=== PATIENT | male | born 1955 | race Hispanic/Latino ===

== ENCOUNTER 2019-06-20 14:31 | Observation (INO) | payer OTHER, MEDICARE ==
[~2019-06-20] VITALS: Ht 162.6 cm; Wt 113.8 kg
[2019-06-20] MEDS ORDERED: ASPIRIN 325 MG TABLET ONE (14:54)
[2019-06-20] MEDS ORDERED: NITROGLYCERIN 1GM/1 INCH PACKET TD ONE (14:54)
[2019-06-20 15:02] LABS: BASOPHILS % (AUTO) 0.2 % (0.0-5.0); EOSINOPHILS % (AUTO) 0.1 % (0.0-8.0); LYMPHOCYTES % (AUTO) 8.3 % (21.0-51.0); MEAN CORPUSCULAR HEMOGLOBIN 30.9 pg (27.0-33.0); MEAN CORPUSCULAR HGB CONC 34.5 g/dL (32.0-36.0); MEAN CORPUSCULAR VOLUME 89.7 fL (79-99); MONOCYTES % (AUTO) 5.9 % (3.0-13.0); NEUTROPHILS % (AUTO) 85.5 % (40.0-77.0); PLATELET COUNT (AUTO) 218 K/uL (130-400); RED BLOOD CELL COUNT(AUTO) 4.69 MIL/uL (4.50-6.20); RED CELL DISTRIBUTION WIDTH 14.3 % (11.0-15.5); WHITE BLOOD COUNT (AUTO) 13.2 K/uL (4.8-10.8)
[2019-06-20 15:16] LABS: POTASSIUM 3.8 mmol/L (3.5-5.1)
[2019-06-20 15:21] LABS: ALBUMIN 3.9 g/dL (3.5-5.0); BILIRUBIN,TOTAL 1.1 mg/dL (0.2-1.0); TOTAL PROTEIN, SERUM 8.3 g/dL (6.0-8.3)
[2019-06-20 15:26] LABS: INR 0.97 (0.85-1.15); PARTIAL THROMBOPLASTIN TIME 26.8 SEC (26.3-35.5); PROTHROMBIN TIME 10.2 SEC (9.6-11.6)
[2019-06-20] MEDS ORDERED: METOPROLOL TARTRATE 1 MG/ML 5ML VIAL IV ONE (16:12)
[2019-06-20] MEDS ORDERED: ENOXAPARIN SODIUM 40 MG/0.4 ML SYRINGE SQ ONE (16:47)
[2019-06-20] MEDS ORDERED: LACTATED RINGERS 1000ML 1,000 ML IV ONE (16:47)
[2019-06-20] MEDS ORDERED: LABETALOL 20 MG/4 ML DISP.SYRIN IV PRN (17:30)
[2019-06-20] MEDS: LACTATED RINGERS 1000ML 1,000 ML IV SCH (17:30)
[2019-06-20] MEDS ORDERED: ONDANSETRON HCL 4 MG/2 ML VIAL IVP PRN (17:30)
[2019-06-20] MEDS ORDERED: ACETAMINOPHEN 325 MG TAB PO PRN (17:30)
[2019-06-20] MEDS ORDERED: MORPHINE SULFATE 2 MG/ML 1ML SYG IVP PRN (17:30)
[2019-06-20] MEDS ORDERED: HYDROCODONE/ACETAMINOPHEN 5/325 MG TAB PO PRN (17:30)
[2019-06-20 18:25] VITALS: BP 122/74
[2019-06-20] MEDS ORDERED: HYDR25TA PO (18:46)
[2019-06-20] MEDS ORDERED: ROPI0.257 PO (18:46)
[2019-06-20] MEDS ORDERED: ATOR40TA69 PO (18:46)
[2019-06-20] MEDS ORDERED: LISI-613 PO (18:46)
[2019-06-20] MEDS ORDERED: OMEP40CA13 PO (18:46)
[2019-06-20 19:53] VITALS: BP 101/61
[2019-06-20] MEDS: METOPROLOL TARTRATE 25 MG TAB PO SCH (20:25)
[2019-06-20] MEDS: INSULIN R PO SS1/2 SQ SCH (20:26)
--- NOTE | 2019-06-20 20:52 | NUR ---
MD Dr MONDRAGON came to see pt.
[2019-06-20] MEDS ORDERED: ATORVASTATIN CALCIUM 40 MG TABLET PO SCH (21:00)
[2019-06-20 21:44] LABS: CREATINE KINASE, TOTAL 208 U/L (21-232); MYOGLOBIN 131 ng/mL (10-92); TROPONIN I < 0.04 ng/mL (0.00-0.06)
--- NOTE | 2019-06-21 01:01 | NUR ---
NPO Pt instructed re Npo status for lexiscan in am.
[2019-06-21 02:50] LABS: BASOPHILS % (AUTO) 2.4 % (0.0-5.0); EOSINOPHILS % (AUTO) 2.3 % (0.0-8.0); HEMATOCRIT 36.8 % (42-54); LYMPHOCYTES % (AUTO) 26.2 % (21.0-51.0); MEAN CORPUSCULAR HEMOGLOBIN 31.2 pg (27.0-33.0); MEAN CORPUSCULAR HGB CONC 34.5 g/dL (32.0-36.0); MEAN CORPUSCULAR VOLUME 90.3 fL (79-99); MONOCYTES % (AUTO) 9.7 % (3.0-13.0); NEUTROPHILS % (AUTO) 59.4 % (40.0-77.0); NUCLEATED RED BLOOD CELLS 0.1 % (0.0-0.19); PLATELET COUNT (AUTO) 183 K/uL (130-400); RED BLOOD CELL COUNT(AUTO) 4.08 MIL/uL (4.50-6.20); RED CELL DISTRIBUTION WIDTH 14.3 % (11.0-15.5); WHITE BLOOD COUNT (AUTO) 8.6 K/uL (4.8-10.8)
[2019-06-21 03:01] LABS: POTASSIUM 3.6 mmol/L (3.5-5.1)
[2019-06-21] MEDS: LACTATED RINGERS 1000ML 1,000 ML IV SCH (03:04)
[2019-06-21 03:15] LABS: CREATINE KINASE, TOTAL 194 U/L (21-232); MYOGLOBIN 62 ng/mL (10-92); TROPONIN I < 0.04 ng/mL (0.00-0.06)
[2019-06-21 04:00] VITALS: BP 137/64
[2019-06-21] MEDS: INSULIN R PO SS1/2 SQ SCH ×2 (05:29→13:39)
[2019-06-21 07:00] VITALS: BP 137/79
[2019-06-21] MEDS ORDERED: REGADENOSON 0.4 MG/5 ML PF SYG IVP SCH (07:45)
[2019-06-21] MEDS ORDERED: ENOXAPARIN SODIUM 40 MG/0.4 ML SYRINGE SQ SCH (09:00)
[2019-06-21] MEDS: METOPROLOL TARTRATE 25 MG TAB PO SCH (09:00)
[2019-06-21] MEDS ORDERED: PNEUMOCOCCAL VACCINE POLYVALENT 0.5 ML/VIAL [PPV] IM SCH (09:00)
[2019-06-21] MEDS ORDERED: ASPIRIN 81MG TAB.CHEW PO SCH (09:00)
[2019-06-21 11:00] VITALS: BP 133/77
[2019-06-21] MEDS ORDERED: FLU VACC QS2019-20 36MOS UP/PF 60 MCG/0.5 ML ML IM SCH (13:45)
[2019-06-21] MEDS ORDERED: FLU VACC QS2019-20 36MOS UP/PF 60 MCG/0.5 ML ML IM ONE (13:45)
[2019-06-21 16:00] VITALS: BP 142/80
[2019-06-21] MEDS ORDERED: METO25 PO (18:47)
[2019-06-21] MEDS ORDERED: ASPI-1005 PO (18:47)
[2019-06-21 19:00] VITALS: BP 143/73
--- NOTE | 2019-06-21 20:03 | NUR ---
discharge discharge instructions given to pt.iv dcd.tele dcd.pt verbalized understanding.
== END 2019-06-21 20:02 | disposition home or self-care (01) ==
LOC: EDH 14:31 → EDHIP 16:08 → 4CH 17:43
PROVIDERS: ADMIT Internal Medicine Critical Care Medicine; ATTEND Internal Medicine Critical Care Medicine
DX: R07.89 Other chest pain (principal); I10 Essential (primary) hypertension; E78.5 Hyperlipidemia, unspecified; M19.90 Unspecified osteoarthritis, unspecified site; G47.00 Insomnia, unspecified; F10.10 Alcohol abuse, uncomplicated; E66.9 Obesity, unspecified; R11.2 Nausea with vomiting, unspecified; Z23 Encounter for immunization; Z79.82 Long term (current) use of aspirin; Z79.899 Other long term (current) drug therapy
CPT/HCPCS: 36415; 71045; 78452; 80048; 80053; 82550; 82948; 83605; 83874; 83880; 84484; 85025; 85610; 85730; 87040; 87804; 90471; 90472; 90732; 93005; 93017; 93306; 96360; 96361; 96372; 96374; A9500; G0378; J1650; J2785; J3490; J7120; Q2035

== ENCOUNTER 2021-12-05 03:56 | Emergency (ER) | payer OTHER, MEDICARE ==
[~2021-12-05] VITALS: Ht 162.6 cm; Wt 111.1 kg
[~2021-12-05 03:56] MED LIST: ASPI-1005 PO; ATOR40TA69 PO; HYDR25TA PO; LISI20TA24 PO; METO25 PO; OMEP40CA21 PO; ROPI0.257 PO
[2021-12-05 04:17] LABS: BASOPHILS % (AUTO) 0.7 % (0.0-5.0); EOSINOPHILS % (AUTO) 4.7 % (0.0-8.0); HEMATOCRIT 38.6 % (42-54); MEAN CORPUSCULAR HEMOGLOBIN 30.9 pg (27.0-33.0); MEAN CORPUSCULAR HGB CONC 33.9 g/dL (32.0-36.0); MONOCYTES % (AUTO) 13.7 % (3.0-13.0); NEUTROPHILS % (AUTO) 50.5 % (40.0-77.0); PLATELET COUNT (AUTO) 192 K/uL (130-400); RED BLOOD CELL COUNT(AUTO) 4.24 MIL/uL (4.50-6.20); RED CELL DISTRIBUTION WIDTH 13.4 % (11.0-15.5); WHITE BLOOD COUNT (AUTO) 6.8 K/uL (4.8-10.8)
[2021-12-05 04:25] LABS: CREATININE 0.8 mg/dL (0.5-1.5); POTASSIUM 3.7 mmol/L (3.5-5.1)
[2021-12-05 04:30] LABS: ALBUMIN 3.5 g/dL (3.5-5.0); BILIRUBIN,TOTAL 0.3 mg/dL (0.2-1.0); TOTAL PROTEIN, SERUM 8.1 g/dL (6.0-8.3)
[2021-12-05] MEDS ORDERED: LIDOCAINE HCL 1% 20 ML VIAL INJ SCH (04:30)
[2021-12-05] MEDS ORDERED: ASPIRIN 81MG CHEW TAB PO ONE (04:30)
[2021-12-05] MEDS ORDERED: LIDOCAINE HCL MPF 1% 5ML VIAL ONE (04:46)
[2021-12-05 05:20] VITALS: BP 138/72
== END 2021-12-05 05:35 | disposition home or self-care (01) ==
LOC: EDH 03:56
DX: S01.01XA Laceration without foreign body of scalp, initial encounter (principal); R55 Syncope and collapse; I10 Essential (primary) hypertension; M19.90 Unspecified osteoarthritis, unspecified site; Z79.899 Other long term (current) drug therapy; Z79.82 Long term (current) use of aspirin; W19.XXXA Unspecified fall, initial encounter; Y93.89 Activity, other specified; Y92.89 Other specified places as the place of occurrence of the external cause; Y99.8 Other external cause status
CPT/HCPCS: 12002; 36415; 70450; 71045; 72125; 80053; 84484; 85025; 93005; 99285; J3490

== ENCOUNTER 2021-12-12 12:11 | Emergency (ER) | payer OTHER, MEDICARE ==
[~2021-12-12] VITALS: Ht 162.6 cm; Wt 111.1 kg
[2021-12-12 12:29] VITALS: BP 139/70
== END 2021-12-12 12:55 | disposition home or self-care (01) ==
LOC: EDH 12:11
DX: S01.01XD Laceration without foreign body of scalp, subsequent encounter (principal); M19.90 Unspecified osteoarthritis, unspecified site; I10 Essential (primary) hypertension; Z79.899 Other long term (current) drug therapy; Z79.82 Long term (current) use of aspirin; X58.XXXD Exposure to other specified factors, subsequent encounter

== ENCOUNTER 2024-08-15 13:54 | Emergency (ER) | payer OTHER, MEDICARE ==
[~2024-08-15] VITALS: Ht 162.6 cm; Wt 106.1 kg
[~2024-08-15 13:54] MED LIST changes: +ROPI0.2535 PO; -ROPI0.257 PO
--- NOTE | 2024-08-15 14:56 | ERN ---
General Stated Complaint: LEFT ARM PAIN Time Seen by MD: 13:57 Source: patient History of Present Illness Initial Comments PATIENT IS A 68-YEAR-OLD MALE COMING IN EVALUATED FOR LEFT ELBOW PAIN. PATIENT STATES HE WAS CHRONIC HISTORY OF WEAKNESS OF THE LOWER EXTREMITIES WHICH CAUSE HER TO FALL. HE STATES HE FELL DOWN A COUPLE OF WEEKS AGO AND THEN AGAIN A WEEK AGO. STATES THAT HE WAS EVALUATED BY PCP BUT HIS LEFT ELBOW PAIN IS STILL PRESENT. Allergies: Coded Allergies: No Known Drug Allergies (Verified Allergy, 06/29/12) Home Meds Active Scripts Metoprolol Tartrate (Lopressor) 25 Mg Tab, 25 MG PO BID for 30 Days, #60 TAB Prov:YVROSE MCDANIEL NP 06/21/19 Aspirin (ASPIRIN 81MG CHEW TAB) 81 Mg Tab.chew, 81 MG PO DAILY for 30 Days, #30 TAB.CHEW Prov:YVROSE MCDANIEL NP 06/21/19 Reported Medications Atorvastatin Calcium (LIPITOR) 80 Mg Tablet, 80 MG PO HS, TAB 06/20/19 Hydrochlorothiazide (Hydrochlorothiazide) 25 Mg Tablet, 25 MG PO DAILY, TAB 06/20/19 Omeprazole (Omeprazole) 40 Mg Capsule.dr, 40 MG PO DAILY, CAP 06/20/19 Ropinirole HCl (Ropinirole HCl) 0.25 Mg Tablet, 0.25 MG PO HS, TAB 06/20/19 Lisinopril (Lisinopril) 20 Mg Tablet, 20 MG PO DAILY, TAB 06/20/19 Past Medical History Past Medical History: Arthritis, Hypertension Past Surgical History: None Family History Family History: Negative Social History Social History: Negative ROS Dictation CONSTITUTIONAL: NO CHILLS, NO FEVER, NO WEAKNESS, NO DIAPHORESIS, NO MALAISE. HEAD/FACE: NO SIGNS OF TRAUMA. EENT: NO EYE PAIN, NO BLURRED VISION, NO TEARING, NO DOUBLE VISION, NO EAR PAIN, NO EAR DISCHARGE, NO NOSE PAIN, NO NASAL CONGESTION, NO THROAT PAIN, NO THROAT SWELLING, NO MOUTH PAIN. RESPIRATORY: NO COUGH, NO ORTHOPNEA, NO SOB, NO STRIDOR, NO WHEEZING. CARDIOVASCULAR: NO CHEST PAIN, NO EDEMA, NO PALPITATIONS, NO SYNCOPE. GASTROINTESTINAL/ABDOMINAL: NO ABDOMINAL PAIN, NO CONSTIPATION, NO DIARRHEA, NO NAUSEA, NO VOMITING. GENITOURINARY: NO ABNORMAL DISCHARGE, NO DYSURIA, NO FREQUENT URINATION, NO HEMATURIA. NO COMPLAINTS OF PAIN IN THE GENITALS. MUSCULOSKELETAL: NO BACK PAIN, NO GOUT, JOINT PAIN, JOINT SWELLING, NO MUSCLE PAIN, NO MUSCLE STIFFNESS, NO NECK PAIN. INTEGUMENTARY: NO CHANGE IN COLOR, NO CHANGE IN HAIR/NAILS, NO DRYNESS, NO LESI ON, NO LUMPS, NO RASH. NEUROLOGICAL/PSYCH: NO ANXIETY, NOT DEPRESSED, NO EMOTIONAL PROBLEM, NO HEADACHE, NO NUMBNESS, NO PRE-EXISTING DEFICIT, NO HISTORY OF SEIZURES, NO TREMORS, NO WEAKNESS. HEMATOLOGIC/LYMPHATIC: NOT ANEMIC, NO HISTORY OF BLOOD CLOTS, NO APPARENT BLEEDING, NO BRUISING, GLANDS NOT SWOLLEN. ALL SYSTEMS NEGATIVE, EXCEPT NOTED. Physical Exam Physical Exam Dictation VITAL SIGNS: REVIEWED. GENERAL APPEARANCE: ALERT, ORIENTED X3, NO ACUTE DISTRESS, OBESE. HEAD AND FACE: NON-TRAUMATIC. EYES: PERRL, PINK CONJUNCTIVAS, EYELID NO TRAUMA, ANTERIOR CHAMBER CLEAR. EARS: PINNAS INTACT AND NO SIGNS OF TRAUMA OR ERYTHEMA. EAR CANALS CLEAR AND NO DISCHARGE. TMS NO ERYTHEMA. NOSE: NO DISCHARGE, NO BLEEDING. OROPHARYNX: MOUTH NORMAL, TEETH NO CARIES, TONGUE PINK. PHARYNX CLEAR, NO ERYTHEMA. TONSILS NO EXUDATES, NO ABSCESSES NOTED. MUCOUS MEMBRANE MOIST. NECK: SUPPLE, NON-TENDER, NO THYROMEGALY, NO MASSES, NO JVD, NO BRUITS. BREAST: DEFERRED. CHEST: NO TENDERNESS, NO CREPITUS, NO PARADOXICAL MOVEMENT, NO RETRACTIONS. LUNGS: CLEAR, WELL-VENTILATED, SYMMETRIC, NO RALES, NO WHEEZING, NO RHONCHI, NO STRIDOR, GOOD BREATH SOUNDS BILATERALLY. HEART: REGULAR RATE, REGULAR RHYTHM, NO MURMUR, NO GALLOPS. VASCULAR: NO PERIPHERAL EDEMA. ABDOMEN: SOFT, POSITIVE BOWEL SOUNDS, NONDISTENDED, NO GUARDING, NONTENDER, NO REBOUND, NO MASSES NO HEPATOMEGALY, NO SPLENOMEGALY, NO CONDE'S SIGN, NO HERNIAS. RECTAL: DEFERRED. GENITAL: DEFERRED. NEUROLOGICAL: NORMAL SPEECH, GROSS MOTOR FUNCTION INTACT, GROSS SENSORY FUNCTION INTACT. MUSCULOSKELETAL: NECK NONTENDER, FULL RANGE OF MOTION, BACK NONTENDER, FULL RANGE OF MOTION. EXTREMITIES: NONTENDER, FULL RANGE OF MOTION. LEFT ELBOW TENDERNESS ON PALPATION MILD SWELLING. SKIN: COLOR PINK, DRY, NO TURGOR, NO RASH, NO LACERATIONS, NO ABRASIONS, NO CONTUSIONS. LYMPHATICS: DEFERRED. Results Laboratory and Microbiology Labs Reviewed?: Yes EKG/XRAY/US/CT/MRI X-RAY Comment [address] [place] [address] IMAGING REPORT Signed PATIENT: ADRIAN VÁSQUEZ MR#: [id number] : 1955 SEX: M AGE: 68 LOCATION: [facility] ORDER 53 STATUS: REG ER REPORT#: [id number] SERVICE 52 REASON: FALL ORDERING PHYSICIAN: ALIX CHONG MD PROCEDURE: ELB3VW LT - ELBOW COMP 3+VWS LT ELBOW COMP 3+VWS LT HISTORY: Status post fall COMPARISON: None TECHNIQUE: 3 images of left elbow were obtained. FINDINGS: There is no acute displaced fracture or dislocation. Degenerative changes are seen. IMPRESSION: 1. Findings as described above. DICTATED BY: CR REDMOND MD DATE: 08/15/241623 ELECTRONICALLY SIGNED BY: CR REDMOND MD DATE: 08/15/241626 [facility] MDM: DIFFERENTIAL DIAGNOSIS: ELBOW FRACTURE, ELBOW CONTUSION, ELBOW SPRAIN, PATIENT IS A 68-YEAR-OLD MALE COMING IN TO BE EVALUATED FOR LEFT ELBOW PAIN. PATIENT WAS EVALUATED BY PCP BUT STATES THAT HE STILL HAS DISCOMFORT IN HIS LEFT ELBOW. ELBOWS WITH THE X-RAY DID NOT DISCLOSE ACUTE FINDINGS, A SLING WAS PROVIDED FOR SYMPTOMATIC RELIEF. WE WILL ALSO BE PROVIDING ANTI-INFLAMMATORIES. I ADVISED HIM APPROPRIATE FOLLOW UP WITH PCP AND TO REST THE ARM FOR SEVEN DAYS. ED Course Orders Procedure Category Date Status Time Elbow Comp 3+Vws Lt RAD 08/15/24 Resulted 14:53 Vital Signs Date Time Temp Pulse Resp B/P (MAP) Pulse Ox O2 Delivery O2 Flow Rate FiO2 08/15/24 16:31 98.1 60 16 130/78 98 Room Air* 0 21 08/15/24 16:14 97.9 64 18 139/73 97 Room Air 0 DX & DISP Disposition: Discharge Departure Impression: Primary Impression: Elbow contusion Condition: Stable Scripts Diclofenac Sodium (Voltaren Arthritis Pain) 1 % Gel..gram. 4 GM TP BID for 7 Days, #1 TUBE Prov: ALIX CHONG MD 08/15/24 Additional Instructions: FOLLOW-UP WITH PRIMARY CARE PROVIDER IN 1 TO 2 DAYS. TAKE MEDICATIONS DIRECTED HERE IN THE EMERGENCY ROOM. OKAY TO CONTINUE HOME MEDICATIONS UNLESS OTHERWISE DISCUSSED DURING YOUR VISIT IN THE EMERGENCY ROOM TODAY. RETURN TO YOUR NEAREST EMERGENCY ROOM IF SYMPTOMS WORSEN OR IF THERE IS NO IMPROVEMENT. CALL 911 IF YOU NEED IMMEDIATE ASSISTANCE. TAKE TYLENOL CTBB-HPX-EDOFPCG NEEDED AND IF NO CONTRAINDICATIONS ARE PRESENT. INCREASE ORAL HYDRATION. A WOUND CULTURE OR URINE CULTURE WAS ORDERED HERE IN THE EMERGENCY ROOM DEPARTMENT PLEASE FOLLOW-UP WITH PRIMARY CARE PROVIDER AND ADVISE THEM TO GET REPEAT PORTS FROM OUR FACILITY. IF YOU HAD ANY MARY WRAP/SPLINTS THAT WERE APPLIED HERE, PLEASE DO NOT REMOVE THEM UNTIL YOU SEE YOUR PRIMARY CARE OR SPECIALTY. REFERRALS: Referrals: LAURA DING MD (PCP) Time of Disposition: 16:41 ALIX CHONG MD Aug 15, 2024 14:56
--- NOTE | 2024-08-15 16:27 | HMCIMG ---
ELBOW COMP 3+VWS LT HISTORY: Status post fall COMPARISON: None TECHNIQUE: 3 images of left elbow were obtained. FINDINGS: There is no acute displaced fracture or dislocation. Degenerative changes are seen. IMPRESSION: 1. Findings as described above.
[2024-08-15 16:31] VITALS: BP 130/78; PULSE 60; RESP 16; TEMP 98.1; O2SAT 98
[2024-08-15] MEDS ORDERED: DICL20GE TP (16:42)
== END 2024-08-15 16:50 | disposition home or self-care (01) ==
LOC: EDH 13:54
DX: S50.02XA Contusion of left elbow, initial encounter (principal); I10 Essential (primary) hypertension; Z79.82 Long term (current) use of aspirin; Z79.899 Other long term (current) drug therapy; W18.39XA Other fall on same level, initial encounter; Y93.89 Activity, other specified; Y92.89 Other specified places as the place of occurrence of the external cause; Y99.8 Other external cause status
CPT/HCPCS: 73080; 99283

== ENCOUNTER → 2024-09-01 | Outpatient (CLI) | payer OTHER, MEDICARE ==
[~2024-09-01] MED LIST changes: +DICL20GE TP
[2024-09-01 13:10] LABS: HEMOGLOBIN A1C 5.6 % (4.0-6.0)
[2024-09-01 13:17] LABS: ALBUMIN 3.6 g/dL (3.5-5.0); BILIRUBIN,TOTAL 0.7 mg/dL (0.2-1.0); CREATININE 0.9 mg/dL (0.5-1.3); POTASSIUM 4.3 mmol/L (3.5-5.1); TOTAL PROTEIN, SERUM 8.3 g/dL (6.0-8.3)
== END | disposition home or self-care (01) ==
LOC: LAB 12:04
PROVIDERS: ATTEND Student in an Organized Health Care Education/Training Program
DX: I11.9 Hypertensive heart disease without heart failure (principal); E78.5 Hyperlipidemia, unspecified; R73.03 Prediabetes; R07.9 Chest pain, unspecified
CPT/HCPCS: 36415; 80053; 80061; 83036

== ENCOUNTER → 2024-09-02 | Outpatient (CLI) | payer OTHER, MEDICARE ==
[~2024-09-02] MED LIST changes: +IOHEXOL 350 MG/ML 100ML INFUS..BTL IV ONE; +metoPROLOL tartRATE 1 MG/ML 5ML VIAL IV ONE
--- NOTE | 2024-09-02 14:29 | HMCIMG ---
CT CARDIAC ANGIO W/CONT. CCTA REASON: CHEST PAIN COMPARISON: None TECHNIQUE: Images are obtained through the heart in the axial plane before and during bolus IV contrast infusion, 100 cc Omnipaque 350. 2-D and 3-D multiplanar reconstruction images were then performed. The injection had to be repeated once due to motion artifact on the first sequence, total contrast volume was 200 cc. FINDINGS: This dictation is for the noncardiac findings only. Cardiac and coronary artery findings are reported separately. Visualized portions of the lungs are clear. There is normal-appearing pulmonary interstitium. There is no hilar or mediastinal lymphadenopathy. Chest wall structures appear unremarkable. IMPRESSION: 1. Unremarkable noncardiac portions of CT cardiac angiography.
--- NOTE | 2024-09-05 17:40 | CARDIOLOGY ---
RAD REPORT: [facility] CT ANGIO RADIOLOGY REPORT: CORONARY CT ANGIOGRAPHY DATE: Sep 05, 2024 QUALITY: Excellent CLINICAL HISTORY AND INDICATION: [ chest pain ] TECHNIQUE: After obtaining a preliminary ore digger image, contrast imaging performed on an Aquillon [id number] scanner. A dedicated, limited window, coronary imaging protocol was used, with single breath-hold, retrospective ECG gating, and automated arrhythmia rejection. 100 cc of low osmolar contrast agent: Omnipaque 350 was delivered via a 18-gauge IV catheter in the right antecubital fossa, using a power injector and followed by 60 cc of normal saline bolus as a chaser. Collimated images were reformatted at 0.5 mm intervals, and sent to an offline independent workstation for interpretation, using 3D anatomic reconstructions: Curved multiplanar reconstructions, maximum intensity projections, and multiplanar imaging. No metoprolol was administered prior to scanning due to low baseline heart rate. 0.4 mg SL nitroglycerin was given. CORONARY ARTERY DESCRIPTIONS: The coronary arteries arise in normal position. Left main coronary artery: Normal caliber vessel that bifurcates into the LAD and LCx. No stenosis. Left anterior descending coronary artery: Normal caliber vessel and gives rise to diagonal and septal branches. There is calcified plaque in the proximal LAD with 20-30% stenosis. Left circumflex coronary artery: Normal caliber, dominant and gives rise to a large OM branch. There is calcified plaque in the proximal and mid with 20-30% stenosis. Right coronary artery: Small, non-dominant vessel. There is mixed calcified and noncalcified plaque in the proximal RCA with 40-50% stenosis. CAD-RADs: 3, moderate stenosis. Thoracic Aorta: Normal diameter. Denise Garcia MD Cardiovascular Disease [facility] DENISE GARCIA MD Sep 05, 2024 17:40
== END | disposition home or self-care (01) ==
LOC: RAH 11:04
PROVIDERS: ATTEND Student in an Organized Health Care Education/Training Program
DX: R07.89 Other chest pain (principal)
CPT/HCPCS: 75574; J3490 ×2; Q9967

== ENCOUNTER 2025-07-18 07:09 | Day surgery (SDC) | payer OTHER, MEDICAID ==
[2025-07-14 14:44] VITALS: BP 129/70; PULSE 79; RESP 17; TEMP 97.7
[2025-07-14 14:45] LABS: IMMATURE GRANULOCYTE ABSOLUTE 0.02 K/uL (0-1); NUCLEATED RED BLOOD CELLS 0.0 % (0.0-0.19); PLATELET COUNT (AUTO) 236 K/uL (130-400); RED BLOOD CELL COUNT(AUTO) 4.60 MIL/uL (4.50-6.20); RED CELL DISTRIBUTION WIDTH 13.9 % (11.0-15.5); WHITE BLOOD COUNT (AUTO) 6.5 K/uL (4.8-10.8)
[2025-07-14 14:57] LABS: CREATININE 1.1 mg/dL (0.5-1.3); GLOMERULAR FILTR. RATE CALC 72.0 mL/min (>90); GLUCOSE,RANDOM 112.0 mg/dL (70-105); INR 1.08 (0.85-1.15); SODIUM SERUM 142.0 mmol/L (136-145); UREA NITROGEN, BLOOD 20.0 mg/dL (7-18)
--- NOTE | 2025-07-15 07:33 | EKG ---
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
[2025-07-18] VITALS (12 sets, daily range): BP systolic 102–134; BP diastolic 55–74; PULSE 59–73; RESP 14–18; TEMP 97–97.9
[~2025-07-18] VITALS: Ht 162.6 cm; Wt 97.3 kg
[~2025-07-18 07:09] MED LIST changes: -IOHEXOL 350 MG/ML 100ML INFUS..BTL IV ONE; -metoPROLOL tartRATE 1 MG/ML 5ML VIAL IV ONE
[2025-07-18] MEDS: LACTATED RINGERS 1000ML 1,000 ML IV ONE (07:58)
[2025-07-18] MEDS ORDERED: ATOR10TA69 PO (08:02)
[2025-07-18] MEDS ORDERED: TRAZ-185 PO (08:02)
[2025-07-18] MEDS ORDERED: HYDR12.54 PO (08:02)
[2025-07-18] MEDS ORDERED: AMLO-258 PO (08:02)
[2025-07-18] MEDS ORDERED: HYDR25TA67 PO (08:02)
[2025-07-18] MEDS ORDERED: OLME40TA18 PO (08:02)
[2025-07-18] MEDS ORDERED: FAMO40TA7 PO (08:02)
[2025-07-18] MEDS ORDERED: INDOCYANINE GREEN 25 MG VIAL IJ ONE (08:04)
[2025-07-18] MEDS ORDERED: SUGAMMADEX SODIUM 200 MG/2 ML VIAL IV ONE (08:49)
[2025-07-18] MEDS ORDERED: FAMOTIDINE 20MG VIAL IV ONE (08:50)
[2025-07-18] MEDS ORDERED: GLYCOPYRROLATE 0.2 MG/ML 5 ML VIAL ONE (08:56)
[2025-07-18] MEDS ORDERED: SUCCINYLCHOLINE CHLORIDE 20 MG/ML 10 ML VIAL ONE (08:56)
[2025-07-18] MEDS ORDERED: LIDOCAINE PF 100MG/5ML (2%) SYRINGE 5ML ONE (08:56)
[2025-07-18] MEDS ORDERED: NEOSTIGMINE METHYLSULFATE 1MG/ML IV ONE (08:57)
[2025-07-18] MEDS ORDERED: MIDAZOLAM HCL 1 MG/ML 2ML VIAL ONE (08:58)
[2025-07-18] MEDS: INDOCYANINE GREEN 25 MG VIAL IJ ONE (10:15)
[2025-07-18] MEDS ORDERED: OXYmetazoline HCL SPRAY 100 SPRAYS/15 ML BOTTLE ONE (11:07)
--- NOTE | 2025-07-18 11:50 | OP ---
Operative Note: DATE OF PROCEDURE: 07/18/25 SURGEON: BEVERLEY MASCORRO MD GLOVE CLEANER: [] ANESTHESIA: [] General ANESTHESIOLOGIST/DIETARY SERVICE AIDE: [] PREOPERATIVE DIAGNOSIS: [] Chronic cholecystitis POSTOPERATIVE DIAGNOSIS: [] The same SYNOPSIS: [] PROCEDURE: [] Robotic cholecystectomy ESTIMATED BLOOD LOSS: [] Minimal INDICATIONS: [] DESCRIPTION OF PROCEDURE: []With the patient prepped and draped we did a supraumbilical incision. Using direct technique I placed a balloon trocar. Two da Kylah trochars were placed in each side of the abdomen under direct vision. A nother 8 mm Daivinci trochar wasplaced in the right lateral side. I then went to the console and the robot was docked. I took all adhesions from the gallbladder and I started dissecting the triangle of Calot. The gallbladder was very friable and we used firefly to identify the cystic duct and CBD.The cystic duct and the cystic artery were clearly identified and both were double clipped and divided. I took the gallbladder from below using cautery dissection. After the gallbladder was completely removed and adequate hemostasis was obtain ed I remove all the instruments from the abdomen. I undocked the robot and I came back to the bedside of the patient. I confirm hemostasis suction and irrigate and I placed the gallbladder in a bag. I injected 40 cc of Marcaine 0.25% as an abdominal tap block under direct vision. I injected 20 cc in each side of the abdomen. I took out all the trochars under direct vision and the gallbladder through the supraumbilical incision. I closed the fascia of the supraumbilical incision with a 0 Vicryl [id number]. All incisions were closed with 4-0 Monocryl and Dermabond The patient was transferred stable to the recovery room. BEVERLEY MASCORRO MD Jul 18, 2025 11:50
[2025-07-18] MEDS ORDERED: PROMETHAZINE HCL 25 MG/ML 1ML AMPULE IM PRN (12:30)
== END 2025-07-18 13:40 | disposition home or self-care (01) ==
LOC: DAH 07:09
PROVIDERS: ATTEND Surgery
DX: K81.1 Chronic cholecystitis (principal); I10 Essential (primary) hypertension; J44.9 Chronic obstructive pulmonary disease, unspecified; M81.0 Age-related osteoporosis without current pathological fracture; E66.9 Obesity, unspecified; Z68.36 Body mass index [BMI] 36.0-36.9, adult; Z79.01 Long term (current) use of anticoagulants; Z82.49 Family history of ischemic heart disease and other diseases of the circulatory system; Z79.899 Other long term (current) drug therapy
CPT/HCPCS: 80048; 85025; 85610; 85730; 36415; 93005; 47563; 88304; A4223 ×2; A4600; A6260; A4663; J7030; J7120; J1308; J3010 ×3; J1100; J0330; J0665 ×3; J3490 ×3; J2003; J2250; J2704; J2405; J1885; J2710; J0690 ×2; C1769; A4649; A4930 ×2; A4215; A4213; A4222; A4221; A4216; A4450